=== PATIENT | male | born 1975 | race Caucasian/White ===

== ENCOUNTER 2024-10-26 13:23 | Emergency (ER) | payer OTHER, SELFPAY ==
--- NOTE | ~2024-10-26 | US_ITS ---
EXAMINATION: US venous doppler [facility] DATE: 10/26/2024 18:00 INDICATION: swelling, L>R . TECHNIQUE: Grayscale images without and with compression and Doppler images of the bilateral lower ex tremity veins were obtained. COMPARISON: None FINDINGS: The right common femoral vein, profunda (deep) femoral vein, femoral vein, popliteal vein, peroneal v ein, posterior tibial veins, gastrocnemius vein, and greater saphenous vein are patent. The left common femoral vein, profunda (deep) femoral vein, femoral vein, popliteal vein, peroneal v ein, posterior tibial veins, gastrocnemius vein, and greater saphenous vein are patent. IMPRESSION: Patent bilateral lower extremity veins. No evidence of deep venous thrombosis. Reviewed, dictated and finalized at location K. [facility]
[2024-10-26 13:31] VITALS: BP 143/84; PULSE 92; RESP 17; TEMP 36.6; O2SAT 98
--- NOTE | 2024-10-26 15:58 | ED_ITS ---
HPI - Nausea/Vomiting/Diarrhea General Chief complaint: Nausea/Vomiting/Diarrhea Stated complaint: abd pain/ diarrhea Time Seen by Provider: 10/26/24 15:58 Focused HPI: This is a 49-year-old male with PMH of insulin-dependent diabetes who presents to the ED for chief complaint of abdominal cramping and abnormal stools over last 3 months and worse the last couple of days. GENERAL: Well-appearing, well-nourished, and in no acute distress. HEAD: Normocephalic, atraumatic. CHEST: Clear to auscultation. No respiratory distress. ABD: Soft and nontender. HEART: Regular rate and rhythm. NEURO: Alert and oriented x3. Patient screened in triage and initial orders placed. Additional care and disposition to be based upon diagnostic testing and treatment. Source: patient Mode of arrival: ambulatory Limitations: no limitations Related Data Allergies Allergy/AdvReac Type Severity Reaction Status Date / Time No Known Allergies Allergy Mild Unverified 01/25/15 19:42 [facility] Family History Family History Grandparent Diabetes mellitus Social History Social History Second hand tobacco smoke exposure: Yes Alcohol intake: current Course Vital Signs Vital signs: Vital Signs Temperature 97.9 F 10/26/24 13:31 Pulse Rate 92 10/26/24 13:31 Respiratory Rate 17 10/26/24 13:31 Blood Pressure 143/84 H 10/26/24 13:31 Pulse Oximetry 98 10/26/24 13:31 Temperature 97.9 F 10/26/24 13:31 Pulse Rate 75 10/26/24 19:21 Respiratory Rate 17 10/26/24 19:21 Blood Pressure 152/94 H 10/26/24 19:21 Pulse Oximetry 97 10/26/24 19:21 MDM - Nausea/Vomiting/Diarrhea Lab Data 10/26/24 16:05 10/26/24 16:05 Labs: Lab Results 10/26/24 10/26/24 10/26/24 Range/Units 16:04 16:05 16:09 WBC 9.5 (4.5-10.0) K/mm3 RBC 5.30 (4.6-6.20) M/mm3 Hgb 16.1 (14.0-18.0) g/dL Hct 47.6 (42.0-52.0) % MCV 89.8 (80-100) fl MCH 30.4 (26-34) pg MCHC 33.8 (32-36) g/dl RDW 14.0 (11.5-14.5) % Plt Count 307 (150-375) k/mm3 MPV 10.8 H (7.4-10.4) fl Immature Gran % (Auto) 0.2 (0-0.5) % Neut % (Auto) 54.4 (45.5-73.1) % Lymph % (Auto) 35.5 (18.3-44.2) % [place] % (Auto) 7.3 (2.6-8.5) % Eos % (Auto) 2.2 (0-4.4) % Baso % (Auto) 0.4 (0.2-1.2) % Lymph # (Auto) 3.36 H (0.9-3.2) K/mm3 [place] # (Auto) 0.7 H (0.1-0.6) K/mm3 Eos # (Auto) 0.2 (0-0.3) K/mm3 Baso # (Auto) 0.0 (0.0-0.1) K/mm3 Abs Immat Gran (auto) 0.02 (0.00-0.031) K/mm3 Absolute Neuts (auto) 5.1 (1.3-6.7) K/mm3 Absolute Nucleated RBC 0.000 (0.0-0.012) K/mm3 Nucleated RBC % 0.0 (0.0-0.2) % Sodium 137 (137-145) mmol/L Potassium 3.8 (3.4-5.0) mmol/L Chloride 104 (98-107) mmol/L Carbon Dioxide 27 (22-30) mmol/L Anion Gap 6 (4-12) mmol/L BUN 12 (9-20) mg/dL Creatinine 0.60 L (0.7-1.3) mg/dL Estim Creat Clear Calc 162 ml/min Estimated GFR > 60 (59 - ) Glucose 132 H (65-110) mg/dL Calcium 9.0 (8.4-10.2) mg/dL Phosphorus 3.6 (2.5-4.5) mg/dL Magnesium 1.5 L (1.6-2.3) mg/dL Total Bilirubin 0.5 (0.2-1.3) mg/dL AST 35 (17-59) U/L ALT 59 H (6-50) U/L Alkaline Phosphatase 66 (38-126) U/L NT-Pro-B Natriuret Pep < 20 (19.9-100) pg/mL Total Protein 7.0 (6.3-8.2) g/dL Albumin 4.3 (3.5-5.1) g/dL Lipase 42 (23-300) U/L Urine Color Yellow (Yellow) Urine Appearance Clear (Clear) Urine pH 5.5 (5.0-9.0) Ur Specific [place] 1.025 (1.001-1.035) Urine Protein Trace (Negative) mg/dL Urine Glucose (UA) Negative (Negative) mg/dL Urine Ketones Negative (Negative) mg/dL Ur Blood (Man) Negative (Negative) Urine Nitrate Negative (Negative) Urine Bilirubin Negative (Negative) Urine Urobilinogen 1.0 (<2.0) mg/dL Leukocyte Esterase Rfl Negative (Negative) MIKI/UL Urine RBC 0-2 (0-2) /hpf Urine WBC 0-5 (0-3) /hpf Ur Squamous Epith Cells None seen (Few) /hpf Urine Bacteria None seen /hpf Urine Casts 0-2 Discharge Plan Discharge Clinical Impression: Melena, Dependent edema Patient Disposition: Home, Self-Care Condition: Stable Instructions: Antibiotic Form, Gastritis (ED), Leg Edema (ED), Edema (ED), Melena (ED) Additional Instructions: Recommend taking Protonix daily as prescribed for protection of stomach. Continue to monitor symptoms. Follow-up with GI for further evaluation. Contact office to make follow-up appointment. Return to the ED if you experience worsening or severe symptoms, bright red rectal bleeding, passing out, feeling dizzy or lightheaded, abdominal pain, unable to keep down food or drink, or any other symptoms of concern. Your ultrasound was negative for blood clots. Your testing for congestive heart failure was negative. You likely have dependent edema. Recommend elevation of legs when able, frequent movements throughout the day, compression stockings. Follow-up with PCP for further evaluation of this. Patient Language: Indonesian Prescriptions: New pantoprazole [Protonix] 20 mg tablet,delayed release (DR/EC) 20 mg PO HS 42 Days Qty: 42 0RF Follow-up/Referrals: PHYSICIAN NOT ON STAFF,NONSTAFF [Non-Staff] - Julian Coreas MD [Physician] - (GI) Stand Alone Forms: Work/School Release IP Time of Disposition: 18:51
[2024-10-26 16:03] VITALS: BP 145/83; PULSE 80; RESP 18; O2SAT 94
[2024-10-26 16:10] LABS: Basophils Percent Auto 0.4 % (0.2-1.2); Eosinophils Absolute Auto 0.2 K/mm3 (0-0.3); Eosinophils Percent Auto 2.2 % (0-4.4); Hematocrit 47.6 % (42.0-52.0); Hemoglobin 16.1 g/dL (14.0-18.0); Immature Granulocyte Absolute 0.02 K/mm3 (0.00-0.031); Immature Granulocyte Percent A 0.2 % (0-0.5); Lymphocytes Absolute Auto 3.36 K/mm3 (0.9-3.2); Lymphocytes Percent Auto 35.5 % (18.3-44.2); Mean Corpuscular HGB Conc 33.8 g/dl (32-36); Mean Corpuscular Hemoglobin 30.4 pg (26-34); Mean Corpuscular Volume 89.8 fl (80-100); Mean Platelet Volume 10.8 fl (7.4-10.4); Monocytes Absolute Auto 0.7 K/mm3 (0.1-0.6); Monocytes Percent Auto 7.3 % (2.6-8.5); Neutrophils Absolute Auto 5.1 K/mm3 (1.3-6.7); Neutrophils Percent Auto 54.4 % (45.5-73.1); Platelet Count Result 307 k/mm3 (150-375); White Blood Count 9.5 K/mm3 (4.5-10.0)
[2024-10-26 16:19] LABS: Alanine Aminotransferase 59 U/L (6-50); Albumin Level 4.3 g/dL (3.5-5.1); Alkaline Phosphatase 66 U/L (38-126); Anion Gap 6 mmol/L (4-12); Aspartate Amino Transferase 35 U/L (17-59); Bilirubin,Total 0.5 mg/dL (0.2-1.3); Blood Urea Nitrogen 12 mg/dL (9-20); Carbon Dioxide 27 mmol/L (22-30); Chloride 104 mmol/L (98-107); Estimated CRCL calculation 162 ml/min; Estimated Glomerular Filt Rate > 60; Glucose 132 mg/dL (65-110); Lipase 42 U/L (23-300); Magnesium 1.5 mg/dL (1.6-2.3); Phosphorus 3.6 mg/dL (2.5-4.5); Potassium 3.8 mmol/L (3.4-5.0); Sodium 137 mmol/L (137-145)
[2024-10-26 16:20] LABS: Add Urine Microscopic? YES; Appearance Urine Clear (Clear); Bacteria Urine None Seen /hpf; Bilirubin Urine Negative (Negative); Blood Urine Negative (Negative); Color Urine Yellow (Yellow); Glucose Urine UA Negative (Negative); Ketones Urine Negative (Negative); Leukocyte Esterase Ur Negative LEU/UL (Negative); Nitrate Urine Negative (Negative); Non Pathogenic Casts 0-2; Protein Urine Trace mg/dL (Negative); RBC Urine 0-2 /hpf (0-2); Specific Grav Ur 1.025 (1.001-1.035); Squamous Epithelial Cell Urine None Seen /hpf (Few); WBC Urine 0-5 /hpf (0-3); pH Urine 5.5 (5.0-9.0)
[2024-10-26] MEDS: MAGNESIUM SULF 2 GM/WATER 50ML 2 GM/50 ML BAG IVPB (17:48)
[2024-10-26 18:02] LABS: NT Pro B Type Natriuretic Pept < 20 pg/mL (19.9-100)
--- NOTE | 2024-10-26 18:46 | ED_ITS ---
HPI - General Adult General Chief complaint: Nausea/Vomiting/Diarrhea Stated complaint: abd pain/ diarrhea Time Seen by Provider: 10/26/24 15:58 Source: patient Mode of arrival: ambulatory Limitations: no limitations History of Present Illness HPI narrative: Patient is a 49-year-old male who presents the ED with report of melena. Patient reports over the last week and half he has been having dark black stools. States he has been having increased bowel movement frequency over the last few weeks. Reporting at times multiple episodes per day. Denies significant abdominal pain. Denies pain with bowel movements. Denies bright red rectal bleeding. Has taken Pepto-Bismol a couple of times, but not recently. Denies iron supplementation. He is not on any anticoagulation. Denies nausea, vomiting, fevers. He did have Cologuard testing performed 2 months ago which he states was normal. He has not had a colonoscopy. Patient also reports having swelling in his lower extremities for past 2 years. Worse throughout the left leg. He states this is typically worse at the end of the day, will improved by the morning. Has been trying to wear compression stockings after states he was recently told to be workup for congestive heart failure, but has not done so yet. Related Data Allergies Allergy/AdvReac Type Severity Reaction Status Date / Time No Known Allergies Allergy Mild Unverified 01/25/15 19:42 Review of Systems Review of Systems: All systems reviewed & are unremarkable except as noted in HPI. All systems reviewed & are unremarkable except as noted in HPI and below PMFSH Family History Family History Grandparent Diabetes mellitus Social History Social History Second hand tobacco smoke exposure: Yes Alcohol intake: current Exam Narrative: GENERAL: Well appearing, obese with BMI of 34.1, non-toxic, in no acute distress. HEAD: Normocephalic, atraumatic. RESPIRATORY: Airway patent, respirations nonlabored. Clear to auscultation bilaterally, no rales, rhonchi, wheezing. CARDIOVASCULAR: Regular rate and rhythm without murmurs, rubs, or gallops. Peripheral pulses intact. ABDOMINAL: Soft, no tenderness throughout abdomen, nondistended. Normoactive BS. RECTAL: Normal rectal tone. No obvious hemorrhoids. Stool dark brown in color, appears guaiac negative. MUSCULOSKELETAL: Moves all extremities. No gross deformities. Mild nonpitting edema throughout BLE, slightly worse on L lower leg. No significant venous stasis changes. SKIN: Warm, dry, normal color. NEURO: A&O X3. Speech clear. Cranial nerves II-XII grossly intact. Steady gait. No ataxic movements. PSYCHIATRIC: Appropriate mood and affect. Normal interaction. Course Vital Signs Vital signs: Vital Signs Temperature 97.9 F 10/26/24 13:31 Pulse Rate 92 10/26/24 13:31 Respiratory Rate 17 10/26/24 13:31 Blood Pressure 143/84 H 10/26/24 13:31 Pulse Oximetry 98 10/26/24 13:31 Temperature 97.9 F 10/26/24 13:31 Pulse Rate 80 10/26/24 16:03 Respiratory Rate 18 10/26/24 16:03 Blood Pressure 145/83 H 10/26/24 16:03 Pulse Oximetry 94 10/26/24 16:03 Medical Decision Making MDM Narrative Medical decision making narrative: Patient presented to ED with report of melena over the last week and a half. Also reporting history of a swelling throughout his lower extremities over the last couple of years. Vital signs are stable upon arrival. Patient is afebrile. No evidence of hemodynamic instability. He is not on any anticoagulation. Has taken Pepto-Bismol intermittently, but denies recent use. Rectal exam was performed in the ED and stool. Dark brown, was guaiac negative. This is reassuring. Laboratory studies are also reassuring. Hemoglobin is stable. Magnesium was slightly low at 1.5. Replacement was given for this. Otherwise stable electrolytes, stable kidney function. UA clear. Patient does not have any abdominal pain or tenderness on exam, denies report of recent abdominal pain. No indication for further imaging at this time. Patient agreeable to this. BNP testing was within normal range. Venous Doppler ultrasound was obtained and negative for DVT. Discussed these findings with patient, likely dependent edema. Discussed management of such, elevation, compression stockings. Overall workup reassuring, no evidence of rectal bleeding at this time. Will start patient on Protonix as caution in case of upper GI bleed. Discussed case with Dr. Wells, GI, agreed with plan for outpatient follow-up. Patient in agreement with this plan. Feels comfortable going home. Discussed strict return precautions. Discharged in stable condition. Medical Records Medical records reviewed: Yes I reviewed the external patient's medical records. Vital Signs Vital Signs: Vital Signs Temperature 97.9 F 10/26/24 13:31 Pulse Rate 92 10/26/24 13:31 Respiratory Rate 17 10/26/24 13:31 Blood Pressure 143/84 H 10/26/24 13:31 Pulse Oximetry 98 10/26/24 13:31 Temperature 97.9 F 10/26/24 13:31 Pulse Rate 80 10/26/24 16:03 Respiratory Rate 18 10/26/24 16:03 Blood Pressure 145/83 H 10/26/24 16:03 Pulse Oximetry 94 10/26/24 16:03 Lab Data Lab results reviewed: Yes I reviewed the patient's lab results. 10/26/24 16:05 10/26/24 16:05 Labs: Lab Results 10/26/24 10/26/24 10/26/24 Range/Units 16:04 16:05 16:09 WBC 9.5 (4.5-10.0) K/mm3 RBC 5.30 (4.6-6.20) M/mm3 Hgb 16.1 (14.0-18.0) g/dL Hct 47.6 (42.0-52.0) % MCV 89.8 (80-100) fl MCH 30.4 (26-34) pg MCHC 33.8 (32-36) g/dl RDW 14.0 (11.5-14.5) % Plt Count 307 (150-375) k/mm3 MPV 10.8 H (7.4-10.4) fl Immature Gran % (Auto) 0.2 (0-0.5) % Neut % (Auto) 54.4 (45.5-73.1) % Lymph % (Auto) 35.5 (18.3-44.2) % [place] % (Auto) 7.3 (2.6-8.5) % Eos % (Auto) 2.2 (0-4.4) % Baso % (Auto) 0.4 (0.2-1.2) % Lymph # (Auto) 3.36 H (0.9-3.2) K/mm3 [place] # (Auto) 0.7 H (0.1-0.6) K/mm3 Eos # (Auto) 0.2 (0-0.3) K/mm3 Baso # (Auto) 0.0 (0.0-0.1) K/mm3 Abs Immat Gran (auto) 0.02 (0.00-0.031) K/mm3 Absolute Neuts (auto) 5.1 (1.3-6.7) K/mm3 Absolute Nucleated RBC 0.000 (0.0-0.012) K/mm3 Nucleated RBC % 0.0 (0.0-0.2) % Sodium 137 (137-145) mmol/L Potassium 3.8 (3.4-5.0) mmol/L Chloride 104 (98-107) mmol/L Carbon Dioxide 27 (22-30) mmol/L Anion Gap 6 (4-12) mmol/L BUN 12 (9-20) mg/dL Creatinine 0.60 L (0.7-1.3) mg/dL Estim Creat Clear Calc 162 ml/min Estimated GFR > 60 (59 - ) Glucose 132 H (65-110) mg/dL Calcium 9.0 (8.4-10.2) mg/dL Phosphorus 3.6 (2.5-4.5) mg/dL Magnesium 1.5 L (1.6-2.3) mg/dL Total Bilirubin 0.5 (0.2-1.3) mg/dL AST 35 (17-59) U/L ALT 59 H (6-50) U/L Alkaline Phosphatase 66 (38-126) U/L NT-Pro-B Natriuret Pep < 20 (19.9-100) pg/mL Total Protein 7.0 (6.3-8.2) g/dL Albumin 4.3 (3.5-5.1) g/dL Lipase 42 (23-300) U/L Urine Color Yellow (Yellow) Urine Appearance Clear (Clear) Urine pH 5.5 (5.0-9.0) Ur Specific [place] 1.025 (1.001-1.035) Urine Protein Trace (Negative) mg/dL Urine Glucose (UA) Negative (Negative) mg/dL Urine Ketones Negative (Negative) mg/dL Ur Blood (Man) Negative (Negative) Urine Nitrate Negative (Negative) Urine Bilirubin Negative (Negative) Urine Urobilinogen 1.0 (<2.0) mg/dL Leukocyte Esterase Rfl Negative (Negative) MIKI/UL Urine RBC 0-2 (0-2) /hpf Urine WBC 0-5 (0-3) /hpf Ur Squamous Epith Cells None seen (Few) /hpf Urine Bacteria None seen /hpf Urine Casts 0-2 Imaging Data Attestation: I personally reviewed and interpreted this imaging study as follows: Radiologist's impression: ITS Impressions Venous Doppler Study 10/26/24 18:12 IMPRESSION: Patent bilateral lower extremity veins. No evidence of deep venous thrombosis. Discharge Plan Discharge Clinical Impression: Melena, Dependent edema Patient Disposition: Home, Self-Care Condition: Stable Instructions: Antibiotic Form, Gastritis (ED), Leg Edema (ED), Edema (ED), Melena (ED) Additional Instructions: Recommend taking Protonix daily as prescribed for protection of stomach. Continue to monitor symptoms. Follow-up with GI for further evaluation. Contact office to make follow-up appointment. Return to the ED if you experience worsening or severe symptoms, bright red rectal bleeding, passing out, feeling dizzy or lightheaded, abdominal pain, unable to keep down food or drink, or any other symptoms of concern. Your ultrasound was negative for blood clots. Your testing for congestive heart failure was negative. You likely have dependent edema. Recommend elevation of legs when able, frequent movements throughout the day, compression stockings. Follow-up with PCP for further evaluation of this. Prescriptions: New pantoprazole [Protonix] 20 mg tablet,delayed release (DR/EC) 20 mg PO HS 42 Days Qty: 42 0RF Follow-up/Referrals: PHYSICIAN NOT ON STAFF,NONSTAFF [Non-Staff] - Julian Coreas MD [Physician] - (GI) Stand Alone Forms: Work/School Release IP Time of Disposition: 18:51
[2024-10-26] MEDS: PANTOPRAZOLE SODIUM IV 40 MG VIAL IV PUSH (19:19)
[2024-10-26 19:21] VITALS: BP 152/94; PULSE 75; RESP 17; O2SAT 97
== END 2024-10-26 19:23 | disposition home or self-care (01) ==
PROVIDERS: Physician Assistant; Emergency Provider Physician Assistant
DX: K92.1 Melena (principal); R60.9 Edema, unspecified; E11.9 Type 2 diabetes mellitus without complications; Z77.22 Contact with and (suspected) exposure to environmental tobacco smoke (acute) (chronic)
CPT/HCPCS: 36415; 80053; 81001; 83690; 83735; 83880; 84100; 85025; 93970; 96365; 96375; 99284; J2470; J3475